=== PATIENT | male | born 1985 ===

== ENCOUNTER 2017-08-07 14:20 | Emergency (ER) | payer SELFPAY ==
[2017-08-07 14:38] VITALS: RESP 18; TEMP 98.4
--- NOTE | 2017-08-07 16:21 | C.PDOC ---
History Of Present Illness 32 years old male presents to ED with complaints of having a fractured nose associated with throat pain. Patient states "I bumped into something." Patient denies swelling or any other physical complaints. Chief Complaint (Nursing): ENT Problem History Per: Patient History/Exam Limitations: no limitations Onset/Duration Of Symptoms: Hrs Severity: Mild Pain Scale Rating Of: 4 Loss Of Consciousness: Unsure Recent travel outside of the [place]: No Past Medical History Reviewed: Historical Data, Nursing Documentation, Vital Signs Vital Signs: Last Vital Signs Temp 98.4 F 08/07/17 17:04 Pulse 79 08/07/17 17:04 Resp 18 08/07/17 17:04 BP 134/71 08/07/17 17:04 Pulse Ox 98 08/07/17 17:48 - Medical History PMH: No Chronic Diseases Surgical History: No Surg Hx Family History: States: No Known Family Hx - Social History Hx Alcohol Use: Yes Hx Substance Use: No - Immunization History Hx Tetanus Toxoid Vaccination: No Hx Influenza Vaccination: No Hx Pneumococcal Vaccination: No Review Of Systems Constitutional: Negative for: Fever ENT: Positive for: Nose Pain, Throat Pain. Negative for: Nose Discharge, Throat Swelling Skin: Negative for: Rash Neurological: Negative for: Weakness, Numbness Psych: Negative for: Depression, Suicidal ideation Physical Exam - Physical Exam Appears: Non-toxic, Other (Awake and alert) Skin: Normal Color, Warm, Dry Head: Normacephalic Eye(s): bilateral: Normal Inspection Nose: No Discharge, Deformity, Tenderness, No Septal Hematoma, Other (Mild erythema with no active bleeding ) Neck: Supple Chest: Symmetrical, No Tenderness Cardiovascular: Rhythm Regular Neurological/Psych: Oriented x3, Normal Speech, Normal Cognition ED Course And Treatment O2 Sat by Pulse Oximetry: 98 (Room air) Pulse Ox Interpretation: Normal - Other Rad Nasal Bones X-Ray X-Ray: Viewed By Me, Read By Radiologist Interpretation: PROCEDURE: Radiographs of Nasal Bones. HISTORY: trauma. COMPARISON: None available. TECHNIQUE: Frontal and lateral radiographs of the nasal bones. FINDINGS: Suspicious for nondisplaced fracture at the right nasal bone. IMPRESSION: Suspicious for nondisplaced fracture at the right nasal bone. Medical Decision Making Medical Decision Making: Ordered nasal bones X-Ray Disposition - Disposition Referrals: Lenin Jamil MD [Staff Provider] - Disposition: HOME/ ROUTINE Disposition Time: 18:43 Condition: GOOD Prescriptions: Acetaminophen/Hydrocodone Bi [Vicodin 300 mg-5 mg] 1 tab PO QID PRN #12 tab PRN Reason: Pain, Mild (1-3) Instructions: Nasal Fracture (ED) Forms: [facility] (Sami) Print Language: FRENCH - Clinical Impression Clinical Impression: Nasal fracture - Scribe Statement The provider has reviewed the documentation as recorded by the Scribe Nan Haro All medical record entries made by the Hermilaibjani were at my direction and personally dictated by me. I have reviewed the chart and agree that the record accurately reflects my personal performance of the history, physical exam, medical decision making, and the department course for this patient. I have also personally directed, reviewed, and agree with the discharge instructions and disposition.
--- NOTE | 2017-08-07 17:03 | RAD ---
PROCEDURE: Radiographs of Nasal Bones HISTORY: trauma COMPARISON: None available. TECHNIQUE: Frontal and lateral radiographs of the nasal bones. FINDINGS: Suspicious for nondisplaced fracture at the right nasal bone. IMPRESSION: Suspicious for nondisplaced fracture at the right nasal bone.
[2017-08-07 17:10] VITALS: BP 134/71; PULSE 79
[2017-08-07 17:47] VITALS: O2SAT 98
== END 2017-08-07 17:04 | disposition home or self-care (01) ==
LOC: C.ER 14:20
DX: S02.2XXA Fracture of nasal bones, initial encounter for closed fracture (principal); W22.8XXA Striking against or struck by other objects, initial encounter